=== PATIENT | male | born 1970 | race African-American/Black ===

== ENCOUNTER 2021-11-22 06:46 | Emergency (ER) | payer MEDICAID ==
[~2021-11-22] VITALS: Ht 177.8 cm; Wt 86.0 kg
[2021-11-22 06:54] VITALS: BP 144/92
[2021-11-22] MEDS ORDERED: ACETAMINOPHEN WITH CODEINE 300/30MG TABLET PO ONE (07:15)
[2021-11-22] MEDS ORDERED: KETOROLAC 60MG/2ML VIAL IM ONE (07:15)
[2021-11-22 08:57] LABS: CHLORIDE 105 mEq/L (98-107)
[2021-11-22 09:04] LABS: C REACTIVE PROTEIN QUANT 1.1 mg/L (0.0-3.0)
[2021-11-22 10:35] LABS: BASOPHILS % 0.7 % (0.0-2.0); EOSINOPHILS % 3.4 % (0.0-5.0); HEMOGLOBIN. 12.6 g/dL (14.0-18.0); LYMPHOCYTES % 30.2 % (20.0-50.0); MEAN CORPUSCULAR HEMOGLOBIN 30.6 pg (28.0-32.0); MEAN CORPUSCULAR VOLUME 91.8 fL (80.0-94.0); MEAN PLATELET VOLUME 8.5 fl (7.4-10.4); MONOCYTES % 6.7 % (2.0-8.0); PLATELET 202 x1000/uL (130-400); RED BLOOD CELL COUNT 4.14 mill/uL (4.7-6.1); RED CELL DISTRIBUTION WIDTH 13.3 % (11.6-14.6)
[2021-11-22] MEDS ORDERED: IBUP-2030 PO (10:48)
[2021-11-22] MEDS ORDERED: T3 PO (10:49)
== END 2021-11-22 11:08 | disposition home or self-care (01) ==
LOC: ER 06:46
DX: M79.621 Pain in right upper arm (principal); M25.531 Pain in right wrist; Z90.49 Acquired absence of other specified parts of digestive tract
CPT/HCPCS: 29125; 36415; 73090; 73100; 80053; 85025; 85651; 86140; 96372; 99284; J1885

== ENCOUNTER 2022-03-07 23:19 | Emergency (ER) | payer MEDICAID ==
[~2022-03-07] VITALS: Ht 177.8 cm; Wt 78.0 kg
[~2022-03-07 23:19] MED LIST: IBUP-2030 PO; T3 PO
[2022-03-08] MEDS ORDERED: METHOCARBAMOL 500MG TABLET PO ONE (03:30)
[2022-03-08] MEDS ORDERED: IBUPROFEN 600MG TABLET PO ONE (03:30)
[2022-03-08] MEDS ORDERED: IBUP-2029 MT (04:52)
[2022-03-08] MEDS ORDERED: METH-653 MT (04:52)
[2022-03-08 05:13] VITALS: BP 115/78
== END 2022-03-08 05:14 | disposition home or self-care (01) ==
LOC: ER 23:19
DX: S13.8XXA Sprain of joints and ligaments of other parts of neck, initial encounter (principal); S33.5XXA Sprain of ligaments of lumbar spine, initial encounter; V49.49XA Driver injured in collision with other motor vehicles in traffic accident, initial encounter; Y93.89 Activity, other specified; Y92.89 Other specified places as the place of occurrence of the external cause; Y99.8 Other external cause status; Z90.49 Acquired absence of other specified parts of digestive tract
CPT/HCPCS: 72040; 72070; 72100; 99284